=== PATIENT | female | born 1980 | race Caucasian/White ===

== ENCOUNTER → 2016-05-08 | Outpatient (CLI) | payer MEDICARE ==
[~2016-05-08] MED LIST: ABILIFY5 MG PO; ATARAX50 MG PO; BCP TD; BUSPAR DIVIDOSE15 MG PO; CELEXA; CELEXA PO; CELEXA40 MG PO; CLEOCIN HC150 MG/CAP PO; CYMBALTA; CYMBALTA 60MG60 MG PO; DIFLUCAN150 MG PO; DILAUDID 2MG TAB2 MG PO; INDERAL40 MG PO; KLONOPIN 0.5MG0.5 MG PO; LAMICTAL200 MG PO; LEVSIN 0.10.125 MG/T PO; LORTAB PO; MINOCIN50 MG PO; MINOCYCLIN100 MG/CAP PO; NORCO 325 MG-51 TAB PO; NORCO PO; OXY IR5 MG PO; OXYCODONE HCL5 MG PO; OXYCODONE PO; OXYCODONE10 MG PO; OXYCODONE5 M1 PO; OXYCONTIN15 MG PO; OXYCONTIN20 MG PO; PERCOCET 325 MG1 TA2 PO; PERCOCET 325 MG1 TA3 PO; PERCOCET 325 MG1 TAB PO; PHENERGAN W/CO120 ML PO; PRENATAL VITAMI1 TA5 PO; SENOKOT S 50 MG1 TAB PO; ULTRAM50 MG PO; WELLBUTRIN 100100 MG PO; XANAX .25M0.25 MG/TA PO; ZOLOFT 100MG100 MG PO; [UNRECOGNIZED DRUG - SUPPLY]
== END ==
LOC: COL.RAD 10:23
DX: Z85.520 Personal history of malignant carcinoid tumor of kidney (principal); Z98.890 Other specified postprocedural states; M43.27 Fusion of spine, lumbosacral region
CPT/HCPCS: Q9967

== ENCOUNTER → 2016-11-19 | Outpatient (CLI) | payer MEDICARE | LOC: COL.RAD 12:00 | DX: Z85.520 Personal history of malignant carcinoid tumor of kidney (principal) ==

== ENCOUNTER → 2017-12-01 | Outpatient (CLI) | payer MEDICARE | LOC: COL.RAD 11:15 | DX: Z08 Encounter for follow-up examination after completed treatment for malignant neoplasm (principal); Z85.520 Personal history of malignant carcinoid tumor of kidney; Z90.5 Acquired absence of kidney ==

== ENCOUNTER 2018-02-18 09:26 | Outpatient (RCR) | payer OTHER | END 2018-02-25 13:30 | disposition home or self-care (01) | LOC: WSPT 09:26 | DX: Z02.71 Encounter for disability determination (principal) ==

== ENCOUNTER → 2018-10-15 | Outpatient (CLI) | payer MEDICARE | LOC: ZCOL.LAB 13:15 | DX: Z01.89 Encounter for other specified special examinations (principal) ==

== ENCOUNTER → 2018-12-02 | Outpatient (CLI) | payer MEDICARE | LOC: COL.RAD 13:25 | DX: Z85.520 Personal history of malignant carcinoid tumor of kidney (principal) ==

== ENCOUNTER → 2021-03-14 | Outpatient (CLI) | payer MEDICARE | LOC: COL.RAD 08:36 | DX: Z85.528 Personal history of other malignant neoplasm of kidney (principal) ==

== ENCOUNTER 2021-05-15 12:57 | Outpatient (CLI) | payer MEDICARE ==
[2021-05-15 13:15] VITALS: BP 127/69; PULSE 77; TEMP 98.6
[2021-05-15 13:30] VITALS: BP 133/75; PULSE 78; TEMP 98.6
[2021-05-15] MEDS ORDERED: ABILIFY5 MG PO (13:36)
[2021-05-15] MEDS ORDERED: XANAX 0.5MG0.5 MG PO (13:36)
[2021-05-15] MEDS ORDERED: CELEBREX 1100 MG/CAP PO (13:37)
[2021-05-15] MEDS ORDERED: GLUCOPHAGE500 MG/TAB PO (13:40)
[2021-05-15 13:45] VITALS: BP 126/76; PULSE 78; TEMP 98.6
[2021-05-15 14:00] VITALS: BP 121/78; PULSE 79; TEMP 98.6
[2021-05-15 14:15] VITALS: BP 135/67; PULSE 87; TEMP 98.6
[2021-05-15 14:30] VITALS: BP 130/64; PULSE 79; TEMP 98.6
== END 2021-05-15 14:40 | disposition home or self-care (01) ==
LOC: EUO 12:57
DX: U07.1 COVID-19 (principal)
CPT/HCPCS: M0247; Q0247

== ENCOUNTER → 2023-07-29 | Outpatient (CLI) | payer MEDICARE ==
[~2023-07-29] MED LIST changes: +CELEBREX 1100 MG/CAP PO; +GLUCOPHAGE500 MG/TAB PO; +XANAX 0.5MG0.5 MG PO
== END ==
LOC: MC.RAD 10:12
DX: Z12.31 Encounter for screening mammogram for malignant neoplasm of breast (principal)